=== PATIENT | female | born 1990 | race Caucasian/White ===

== ENCOUNTER 2016-10-11 17:16 | Emergency (ER) | payer OTHER ==
[2016-10-11 17:31] VITALS: BP 122/76
--- NOTE | 2016-10-11 18:04 | UC ---
Abdominal Pain Female HPI - HPI Summary HPI Summary: right mid abd pain for past 2 days. Sharp, stabbing, intermittent. "Couldn't even get out of bed 2d ago and today." Today began vomiting. No change in pain with eating or vomiting. Pain is worse with certain movements, but will also occur at rest. Pain is sharp, lasts 10-15 min, then dissipates. No fever. Has felt achey, tired, "fluey". No vaginal discharge or unusual bleeding. On control, "not ". No trauma. Mild congestion and ST. Son ill with URI - History of Current Complaint Chief Complaint: UCAbdominalPain Stated Complaint: ABDOMINAL PAIN/VOMITING Time Seen by Provider: 10/11/16 17:44 Hx Obtained From: Patient Hx Last Menstrual Period: 3 weeks ago, Nexplanon ?: No Onset/Duration: Gradual Onset, Lasting Days - 3 Timing: Intermittent Episodes Lasting: - 15 min Severity Initially: Moderate Severity Currently: None Location: Other - right mid abdomen, some in epigastric area Radiates: Yes Radiates to: Flank Character: Colicy, Cramping, Sharp Aggravating Factor(s): Movement Alleviating Factor(s): OTC Analgesics - Motrin helps Associated Signs and Symptoms: Positive: Back Pain, Decreased Appetite, Nausea, Vomiting - several times today. Negative: Diaphoresis, Fever, Cough, Constipation, Blood in Stool, Urinary Symptoms, Vaginal Bleeding, Vaginal Discharge, Diarrhea - Risk Factors Ectopic Risk Factor: Negative Ovarian Torsion Risk Factor: Negative Allergies/Adverse Reactions: Allergies Allergy/AdvReac Type Severity Reaction Status Date / Time No Known Allergies Allergy Verified 10/11/16 17:30 Home Medications: Home Medications Ibuprofen TAB* [Motrin TAB* 800 MG] 800 mg PO Q6H 10/11/16 [History Confirmed ] Nexplanon 1 dose .ROUTE ONCE 10/11/16 [History Confirmed 10/11/16] traMADol TAB* [Ultram*] 50 mg PO Q6HR PRN 10/11/16 [History Confirmed 10/11/16] PMH/Surg Hx/FS Hx/Imm Hx Previously Healthy: Yes - Surgical History Surgical History: Yes Surgery Procedure, Year, and Place: I &D OF ANAL ABCSESS UNDER GENERAL ANESTHESIA - Family History Known Family History: Positive: Respiratory Disease - asthma - Social History Occupation: Employed Full-time Lives: With Family Alcohol Use: Occasionally Substance Use Type: None Smoking Status (MU): Heavy Every Day Tobacco Smoker Amount Used/How Often: 1/2 ppd Review of Systems Constitutional: Negative Skin: Negative Eyes: Negative ENT: Negative Respiratory: Negative Cardiovascular: Negative Gastrointestinal: Abdominal Pain, Vomiting Genitourinary: Negative Motor: Negative Neurovascular: Negative Musculoskeletal: Negative Neurological: Negative Psychological: Negative All Other Systems Reviewed And Are Negative: Yes Physical Exam Triage Information Reviewed: Yes Appearance: Well-Appearing, No Pain Distress, Well-Nourished Vital Signs: Initial Vital Signs Temp 97.5 F 10/11/16 17:27 Pulse 90 10/11/16 17:27 Resp 16 10/11/16 17:27 BP 122/76 10/11/16 17:27 Pulse Ox 100 10/11/16 17:27 Vital Signs Reviewed: Yes Eye Exam: Normal Neck exam: Normal Respiratory Exam: Normal Cardiovascular Exam: Normal Abdomen Description: Positive: No Organomegaly, Soft, CVA Tenderness (R) - mild. Negative: Bruit, Distended, Guarding, Hernia @, Hepatomegaly, McBurney's Point Tenderness, Peritoneal Signs, Pulsatile Mass, Splenomegaly Bowel Sounds: Positive: Present Musculoskeletal Exam: Normal Neurological Exam: Normal Psychological Exam: Normal Skin Exam: Normal Diagnostics - Laboratory Diagnostic Studies Completed/Ordered: U/A neg, HCG neg Abd Pain Female Course/Dx - Differential Dx/Diagnosis Differential Diagnosis: Appendicitis, Diverticulitis, Ectopic , Irritable Bowel Syndrome, Pelvic Inflammatory Disease, Urinary Tract Infection Provider Diagnoses: intestinal cramping Discharge - Discharge Plan Condition: Stable Disposition: HOME Prescriptions: Dicyclomine CAP* [Bentyl CAP*] 10 mg PO TID PRN #14 cap PRN Reason: abdominal cramps Patient Education Materials: Gastroenteritis (ED) Forms: *Work Release Referrals: Diana Faria MD [Primary Care Provider] -
== END 2016-10-11 18:20 | disposition home or self-care (01) ==
LOC: UCCORT 17:16
DX: R10.11 Right upper quadrant pain (principal); R10.13 Epigastric pain; M54.9 Dorsalgia, unspecified; R11.2 Nausea with vomiting, unspecified; Z32.02 Encounter for pregnancy test, result negative; F17.210 Nicotine dependence, cigarettes, uncomplicated
CPT/HCPCS: 81025; 99202; G0463

== ENCOUNTER 2017-07-25 19:17 | Emergency (ER) | payer OTHER ==
[2017-07-25 19:36] VITALS: BP 126/83
--- NOTE | 2017-07-25 20:03 | UC ---
Respiratory Complaint HPI - HPI Summary HPI Summary: 27 y/o female presents to the urgent care c/o persistent productive cough and hoarseness for the past week. Cough is productive with green sputum, mild SOB at times and subjective fever at home. Symptoms started with sore throat. She has been taking Robitussin PO and Advil PO to alleviate symptoms and now she is loosing her voice. She has had bronchitis in the past and she request antibiotic treatment. Pt denies chest pain, N/V/D, abdominal pain. Pt is a smoker. - History of Current Complaint Chief Complaint: UCGeneralIllness Stated Complaint: NO VOICE,COUGH Time Seen by Provider: 07/25/17 19:46 Hx Obtained From: Patient Hx Last Menstrual Period: 07/25/17 ?: No Onset/Duration: Gradual Onset, Lasting Weeks - 1 week, Still Present Timing: Constant Severity Initially: Mild Severity Currently: Severe Pain Intensity: 8 Pain Scale Used: 0-10 Numeric Character: Cough: Productive, Sputum Description: - green Aggravating Factors: Deep Breaths Alleviating Factors: OTC Meds Associated Signs And Symptoms: Positive: Dyspnea, Fever - subjective at home. Negative: Dizziness, Calf Pain, URI, Nasal Congestion - Risk Factors Pulmonary Embolism Risk Factors: Negative Cardiac Risk Factors: Negative, Smoking Pseudomonas Risk Factors: Negative Tuberculosis Risk Factors: Negative - Allergies/Home Medications Allergies/Adverse Reactions: Allergies Allergy/AdvReac Type Severity Reaction Status Date / Time No Known Allergies Allergy Verified 07/25/17 19:32 PMH/Surg Hx/FS Hx/Imm Hx Previously Healthy: Yes - Pt denies PMHX - Surgical History Surgical History: Yes Surgery Procedure, Year, and Place: I &D OF ANAL ABCSESS UNDER GENERAL ANESTHESIA - Family History Known Family History: Positive: Cardiac Disease, Diabetes, Respiratory Disease - asthma - Social History Occupation: Employed Full-time Lives: With Family Alcohol Use: Occasionally Substance Use Type: None Smoking Status (MU): Heavy Every Day Tobacco Smoker Type: Cigarettes Amount Used/How Often: 1/2 ppd Review of Systems Constitutional: Negative Skin: Negative Eyes: Negative ENT: Sore Throat Respiratory: Shortness Of Breath, Cough - productive with green sputum Cardiovascular: Negative Gastrointestinal: Negative Genitourinary: Negative Motor: Negative Neurovascular: Negative Musculoskeletal: Negative Neurological: Negative Psychological: Negative Is Patient Immunocompromised?: No All Other Systems Reviewed And Are Negative: Yes Physical Exam Triage Information Reviewed: Yes Vital Signs: Initial Vital Signs Temp 98.2 F 07/25/17 19:33 Pulse 108 07/25/17 19:33 Resp 16 07/25/17 19:33 BP 126/83 07/25/17 19:33 Pulse Ox 97 07/25/17 19:33 - Additional Comments Vital Signs Reviewed: Yes General: well developed , well nourished female with mild distress due to hoarseness and cough Eyes: Positive: Conjunctiva Clear - PERRLA, EOMI, fundi grossly normal ENT: Positive: Normal ENT inspection, Hearing grossly normal, Pharynx mild erythema, no Nasal congestion , TMs normal. Negative: Tonsillar swelling or Tonsillar exudate Neck: Positive: Supple, Nontender, No Lymphadenopathy Respiratory: no orthopnea or dyspnea. Able to speak in full sentences, no retractions or accessory muscle use, no tripod position, stridor, or head bobbing. positive posterior upper lungs with ronchi.no wheezing, or decrease breath sounds Cardiovascular: Positive: RRR, No Murmur, Pulses Normal, Brisk Capillary Refill Abdomen Description: Positive: Nontender, No Organomegaly, Soft. Negative: CVA Tenderness (R), CVA Tenderness (L) Bowel Sounds: Positive: Present Musculoskeletal Exam: Normal Musculoskeletal: Positive: Strength Intact, ROM Intact, No Edema Neurological Exam: Normal Psychological Exam: Normal Skin Exam: Normal UC Diagnostic Evaluation - Laboratory O2 Sat by Pulse Oximetry: 97 Respiratory Course/Dx - Course Course Of Treatment: 27 y/o female presents to the urgent care c/o persistent productive cough and hoarseness for the past week. Cough is productive with green sputum, mild SOB at times and subjective fever at home. Symptoms started with sore throat. She has been taking Robitussin PO and Advil PO to alleviate symptoms and now she is loosing her voice. She has had bronchitis in the past and she request antibiotic treatment. Pt denies chest pain, N/V/D, abdominal pain. Pt is a smoker. Hx obtained. Pt with B/L rhonchi in the left posterior lungs, and laryngitis on examiantion. Pt declined chest X-ray and requested ABX treatment. Pt is current heavy every day smoker. O2sat: 97% and HR :108. Pt will be tX for Acute Bronchitis, Rx Amoxicillin PO , Tessalon PO for cough. Advised to rest her voice and stop smoking and use a humidifier at night until symptoms improve. Strongly advised if not improvement or worsen of symptoms to f/u with PCP for further management. Pt understood and agreed with D /C instructions and left the clinic hemodynamically stable. Pt Rx Amoxicillin PO and Tessalon PO for cough. - Differential Dx/Diagnosis Differential Diagnosis/HQI/PQRI: Bronchitis, Exacerbation Of COPD, Lower Resp Infection, MRSA, Sinusitis, Other - laryngitis, pharyngitis Provider Diagnoses: 1- Acute bronchitis. 2-Laryngitis Discharge - Discharge Plan Condition: Stable Disposition: HOME Prescriptions: Amoxicillin PO (*) [Amoxicillin 875 MG (*)] 875 mg PO BID #20 tab Benzonatate CAP* [Tessalon 100 MG CAP*] 100 mg PO TID #21 cap Patient Education Materials: Acute Bronchitis (ED) Forms: *Work Release Referrals: Diana Faria MD [Primary Care Provider] - 3 Days Additional Instructions: 1-Please take full course of antibiotic to avoid resistance. 2-Take Tessalon PO tabs as directed to alleviate cough. Increase fluid intake, rest and eat well. 3- Rest your voice, use a humidifier at home and take ibuprofen PO q6-8hrs for 2 days you have at home to decrease swelling 3- If symptoms do not improve or worsen or your develop SOB with fever and severe wheezing
[2017-07-25] MEDS ORDERED: Amoxicillin PO (*) 500 MG CAP PO ONE (20:15)
== END 2017-07-25 20:30 | disposition home or self-care (01) ==
LOC: UCCORT 19:17
DX: J20.9 Acute bronchitis, unspecified (principal); J04.0 Acute laryngitis; F17.210 Nicotine dependence, cigarettes, uncomplicated
CPT/HCPCS: 99212; A9270-GY; G0463

== ENCOUNTER 2018-08-06 14:08 | Emergency (ER) | payer OTHER ==
[2018-08-06 15:10] VITALS: BP 122/77
--- NOTE | 2018-08-06 15:18 | UC ---
Ear Complaint HPI - HPI Summary HPI Summary: 28 yo female presents with right ear pain and right eye redness/itching/ drainage. She tells me that she has a history of cerumen impaction and has had her ears flushed multiple times. Also, her son has had "pink eye" for the last 3 -4 days and this morning pt woke up with right eye redness, itching, and clear drainage. She does not wear contacts or glasses. Denies fever, chills, sore throat, sinus symptoms. - History of Current Complaint Chief Complaint: UCGeneralIllness Stated Complaint: RIGHT EAR PLUGGED Time Seen by Provider: 08/06/18 15:18 Hx Obtained From: Patient Hx Last Menstrual Period: current Onset/Duration: Sudden Onset Severity Initially: Moderate Severity Currently: Moderate Pain Intensity: 6 Pain Scale Used: 0-10 Numeric - Allergies/Home Medications Allergies/Adverse Reactions: Allergies Allergy/AdvReac Type Severity Reaction Status Date / Time No Known Allergies Allergy Verified 08/06/18 15:10 PMH/Surg Hx/FS Hx/Imm Hx - Additional Past Medical History Additional PMH: None - Surgical History Surgical History: Yes Surgery Procedure, Year, and Place: I &D OF ANAL ABCSESS UNDER GENERAL ANESTHESIA - Family History Known Family History: Positive: Cardiac Disease, Diabetes, Respiratory Disease - asthma - Social History Occupation: Employed Full-time Lives: With Family Alcohol Use: Occasionally Substance Use Type: None Smoking Status (MU): Heavy Every Day Tobacco Smoker Type: Cigarettes Amount Used/How Often: 1/2 ppd Review of Systems Constitutional: Negative Skin: Negative Eyes: Drainage, Eye Redness ENT: Ear Ache Respiratory: Negative Cardiovascular: Negative Gastrointestinal: Negative Neurovascular: Negative Neurological: Negative Psychological: Negative All Other Systems Reviewed And Are Negative: Yes Physical Exam - Summary Physical Exam Summary: GENERAL: WDWN. No pain distress. SKIN: No rashes, sores, lesions, or open wounds. HEENT: Head: AT/NC Eyes: EOM intact. PERRLA. RIGHT EYE: Mild scleral injection. Conjunctiva with mild erythema and inflammation. Mild clear discharge. LEFT EYE : Conjunctiva clear without inflammation or discharge. No FBs appreciated Ears: Hearing grossly normal. RIGHT ear: blocked by brown/black cerumen. LEFT ear: Moderate cerumen. S/p irrigation: TMs intact, no bulging, erythema, or edema. Nose: NTTP maxillary and frontal sinus. NECK: Supple. Nontender. No lymphadenopathy. CHEST: No accessory muscle use. Breathing comfortably and in no distress. CV: Pulses intact. Cap refill <2seconds NEURO: Alert. PSYCH: Age appropriate behavior. Triage Information Reviewed: Yes Vital Signs: Initial Vital Signs Temp 97.5 F 08/06/18 15:05 Pulse 83 08/06/18 15:05 Resp 18 08/06/18 15:05 BP 122/77 08/06/18 15:05 Pulse Ox 99 08/06/18 15:05 Vital Signs Reviewed: Yes Ear Complaint Course/Dx - Course Course Of Treatment: Cerumen disimpaction completed with great results. Pt's ear pain resolved. Will rx polytrim for right eye conjunctivitis. - Differential Dx/Diagnosis Provider Diagnoses: Cerumen disimpaction. Right eye conjunctivitis Discharge - Sign-Out/Discharge Documenting (check all that apply): Patient Departure All imaging exams completed and their final reports reviewed: No Studies - Discharge Plan Condition: Stable Disposition: HOME Prescriptions: Polymyx/Trimethoprim OPTH* [Polytrim OPHTH*] 1 drop RIGHT EYE QID #1 btl Patient Education Materials: Cerumen Impaction (ED), Conjunctivitis (ED) Referrals: Yamile Sanders [Primary Care Provider] - Additional Instructions: If you develop a fever, shortness of breath, chest pain, new or worsening symptoms - please call your PCP or go to the ED. - Billing Disposition and Condition Condition: STABLE Disposition: Home
== END 2018-08-06 15:52 | disposition home or self-care (01) ==
LOC: UCCORT 14:08
DX: H61.21 Impacted cerumen, right ear (principal); H10.9 Unspecified conjunctivitis; F17.210 Nicotine dependence, cigarettes, uncomplicated
CPT/HCPCS: 99213; G0463

== ENCOUNTER 2019-09-03 21:35 | Emergency (ER) | payer OTHER ==
[2019-09-03 21:52] VITALS: BP 128/91
--- NOTE | 2019-09-03 21:54 | UC ---
Throat Pain/Nasal [place] HPI - HPI Summary HPI Summary: 29 yo female presents with URI symptoms. She tells me for the last 5 days she has had body aches, sore throat, dry cough, and over the last 2 days has lost her voice. She has been taking tylenol OTC with no relief. She has not had a fever. She is still smoking daily. She missed work tonight and is requesting a note for work - History of Current Complaint Chief Complaint: UCRespiratory Stated Complaint: LOSS OF VOICE Time Seen by Provider: 09/03/19 21:53 Hx Obtained From: Patient Hx Last Menstrual Period: has the nexplamon, periods are irregular Onset/Duration: Gradual Onset Severity: Mild Pain Intensity: 4 Pain Scale Used: 0-10 Numeric - Allergies/Home Medications Allergies/Adverse Reactions: Allergies Allergy/AdvReac Type Severity Reaction Status Date / Time No Known Allergies Allergy Verified 09/03/19 21:43 Home Medications: Home Medications Acetaminophen [Tylenol Extra Strength] 1,500 mg PO PRN 09/03/19 [History] PMH/Surg Hx/FS Hx/Imm Hx - Additional Past Medical History Additional PMH: None - Surgical History Surgical History: Yes Surgery Procedure, Year, and Place: I &D OF ANAL ABCSESS UNDER GENERAL ANESTHESIA - Family History Known Family History: Positive: Cardiac Disease, Diabetes, Respiratory Disease - asthma - Social History Occupation: Employed Full-time Lives: With Family Alcohol Use: Occasionally Substance Use Type: None Smoking Status (MU): Heavy Every Day Tobacco Smoker Type: Cigarettes Amount Used/How Often: 1/2 ppd Household Exposure Type: Cigarettes Review of Systems All Other Systems Reviewed And Are Negative: No Constitutional: Positive: Fatigue Skin: Positive: Negative Eyes: Positive: Negative ENT: Positive: Sore Throat Respiratory: Positive: Cough Cardiovascular: Positive: Negative Gastrointestinal: Positive: Negative Neurovascular: Positive: Negative Neurological: Positive: Negative Psychological: Positive: Negative Physical Exam - Summary Physical Exam Summary: GENERAL: NAD. WDWN. No pain distress. SKIN: No rashes, sores, lesions, or open wounds. HEENT: Head: AT/NC Eyes: EOM intact. Conjunctiva clear without inflammation or discharge. Ears: Hearing grossly normal. TMs intact, no bulging, erythema, or edema. Nose: Nasal mucosa pink and moist. NTTP maxillary and frontal sinus. Throat: Posterior oropharynx with mild erythema. No exudates or tonsillar enlargement. Uvula midline. NECK: Supple. Nontender. No lymphadenopathy. CHEST: CTAB. No accessory muscle use. Breathing comfortably and in no distress. CV: RRR. Pulses intact. Cap refill <2seconds NEURO: Alert. PSYCH: Age appropriate behavior. Triage Information Reviewed: Yes Vital Signs: Initial Vital Signs Temp 97.8 F 09/03/19 21:45 Pulse 87 09/03/19 21:45 Resp 16 09/03/19 21:45 BP 128/91 09/03/19 21:45 Pulse Ox 98 09/03/19 21:45 Laboratory Tests 09/03/19 21:56 Group A Strep Rapid Positive A Vital Signs Reviewed: Yes Throat Pain/Nasal Course/Dx - Course Course Of Treatment: POC strep positive. Rx for amoxicillin - Differential Dx/Diagnosis Provider Diagnosis: Strep throat Discharge ED - Sign-Out/Discharge Documenting (check all that apply): Patient Departure All imaging exams completed and their final reports reviewed: No Studies - Discharge Plan Condition: Stable Disposition: HOME Prescriptions: Amoxicillin PO (*) [Amoxicillin 500 MG CAP*] 500 mg PO Q12H #20 cap Patient Education Materials: Laryngitis (ED), Strep Throat (ED) Forms: *Work Release Referrals: Yamile Sanders [Primary Care Provider] - Additional Instructions: If you develop a fever, shortness of breath, chest pain, new or worsening symptoms - please call your PCP or go to the ED immediately. - Billing Disposition and Condition Condition: STABLE Disposition: Home
[2019-09-03] MEDS ORDERED: Amoxicillin PO (*) 500 MG CAP PO ONE (21:59)
== END 2019-09-03 22:07 | disposition home or self-care (01) ==
LOC: UCCORT 21:35
DX: J02.0 Streptococcal pharyngitis (principal); F17.210 Nicotine dependence, cigarettes, uncomplicated; R53.83 Other fatigue
CPT/HCPCS: 87651; 99212; A9270-GY; G0463